=== PATIENT | female | born 1990 | race Asian ===

== ENCOUNTER 2023-12-06 08:33 | Observation (INO) ==
--- NOTE | 2023-12-05 09:26 | Anesthesiology Consultation ---
Date of Service December 05, 2023 Assessment & Plan (1) Encounter for pre-operative examination: - check urine test STAT am DOS. - ER 12/04/23 [facility]: "...skateboarding when she lost control and landed on an inverted left ankle. Immediate pain and deformity to the ankle...denies wearing a helmet. Denies striking her head or loss of consciousness. She is not on any anticoagulation...ankle reduced in ER after several attempts and assisted by Dr. 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 Chart Review Chart Review: Acceptable Risk for Surgery and Patient NOT seen in Pre Admission Testing History Surgery Operation Date: 12/06/23 09:55 Proposed Procedures p Right Ankle Open Reduction and Internal Fixation - Jared Grayson MD Height/Weight Height: 5 ft 4 in Weight: 56 kg Allergies Allergy/AdvReac Type Severity Reaction Status Date / Time No Known Allergies Allergy Verified 12/05/23 09:36 Medications Home Medications Medication Instructions Recorded Confirmed Last Taken ibuprofen 200 mg tablet (Advil) 200 mg PO Q6H PRN pain #30 tabs 05/19/21 12/05/23 Unknown cholecalciferol (vitamin D3) 50 50 mcg PO DAILY 01/05/22 12/05/23 Unknown mcg (2,000 unit) capsule fluticasone propionate 50 1 spray intranasal DAILY 01/05/22 12/05/23 Unknown mcg/actuation nasal spray,suspension (Allergy Relief (fluticasone)) melatonin 1 mg tablet 1 mg PO HS PRN Sleep 01/05/22 12/05/23 Unknown cephalexin 500 mg capsule 500 mg PO QID 7 days #28 caps 12/04/23 12/05/23 Unknown oxycodone 5 mg tablet 5 mg PO Q6H #10 tabs 12/04/23 12/05/23 Unknown Medical Marijuana 1 gummy PO UD PRN anxiety and 12/05/23 12/05/23 Unknown depression glucosam 750 mg-chondroi 100 1 tab PO DAILY 12/05/23 12/05/23 Unknown mg-hyalur 1.65 mg-CF borate 108 mg tablet (ShoorK) levonorgestrel-ethinyl estradiol 1 tab PO HS 12/05/23 12/05/23 Unknown 0.1 mg-20 mcg tablet vitamin B complex 1 cap PO DAILY 12/05/23 12/05/23 Unknown Past Medical History Medical History (Updated 12/05/23 @ 10:17 by Neeta Tran PA-C) Anxiety and depression Past Family History Family History Grandmother (Maternal) Colorectal cancer Diabetes Grandmother (Paternal) Myocardial infarction Other Hypertension Denies family history of Ovarian cancer Prostate cancer Breast cancer Past Surgical History Surgical History (Updated 12/05/23 @ 09:44 by Jayla Seaman) S/P wisdom tooth extraction not under anesthesia Social History Smoking Status: Never smoker Hx Alcohol Use: No Hx Substance Use: No substance use type: marijuana Lab Results Anesthesia Preop Results Results Anesthesia Widget: WBC 5.80 K/ul (4.8-10.8) 12/04/23 Hgb 14.6 g/dl (12.0-16.0) 12/04/23 Hct 42.0 % (37.0-47.0) 12/04/23 Plt 219 K/uL (130-400) 12/04/23 Na 137 mmol/L (136-145) 12/04/23 K 3.6 mmol/L (3.5-5.1) 12/04/23 Cl 103 mmol/L (98-107) 12/04/23 CO2 24 mmol/L (21-32) 12/04/23 BUN 11 mg/dl (6-23) 12/04/23 Creat 1.06 mg/dl (0.6-1.2) 12/04/23 Glucose Level 103 mg/dl (70-99(Fasting)) H 12/04/23
[~2023-12-06 08:33] MED LIST: LIDOCAINE 2% 2 ML VIAL/AMP(20MG/ML) INFIL ONE; MIDAZOLAM HCL 1 MG/ML 2ML VIAL ONE; PROPOFOL IV EMULSION 10 MG/ML 20 ML VIAL IV ONE; ROPIVACAINE 0.5% 5 MG/ML 30 ML VIAL ONE; fentaNYL citrate PF 100 MCG/2 ML VIAL ONE
[2023-12-06] MEDS ORDERED: fentaNYL citrate PF 100 MCG/2 ML VIAL IV PRN (08:48)
[2023-12-06] MEDS ORDERED: ePHEDrine sulfate 50 MG/ML AMP IV PRN (08:48)
[2023-12-06] MEDS ORDERED: HYDROmorphone INJ 1 MG/ML SYRINGE IV PRN (08:48)
[2023-12-06] MEDS ORDERED: PROMETHAZINE HCL 6.25 MG in SODIUM CHLORIDE 0.9% 50 ML IV PRN (08:48)
[2023-12-06] MEDS ORDERED: ATROPINE SULFATE 0.1 MG/ML 10ML SYR IV PRN (08:48)
[2023-12-06] MEDS ORDERED: ONDANSETRON INJ 2 MG/ML 2 ML VIAL IV PRN ×2 (08:48→13:26)
--- NOTE | 2023-12-06 09:16 | History & Physical Bridge Note ---
Date of Service December 06, 2023 History & Physical Bridge Note I have examined the patient, reviewed the History & Physical and in the interval since the performance of the History & Physical I have noted the following changes of clinical significance: no changes noted
[2023-12-06] MEDS: LR 15ML/HR IV SCH (09:25)
[2023-12-06] MEDS: ACETAMINOPHEN 500 MG TAB PO SCH (09:40)
[2023-12-06 10:09] LABS: Pregnancy Test, Serum Negative (Negative)
[2023-12-06] MEDS: ceFAZolin 2000MG 2,000 MG/15 ML SYR IV SCH ×2 (10:24→21:01)
[2023-12-06] MEDS ORDERED: DEXAMETHASONE SOD INJ 4 MG/ML VIAL ONE (11:11)
[2023-12-06] MEDS ORDERED: ePHEDrine sulfate 50 MG/5 ML SYR ONE (11:12)
--- NOTE | 2023-12-06 13:09 | Fluoroscopy Report ---
FL ankle RT 2V CLINICAL HISTORY: R ANKLEright ankle surgery COMPARISON STUDY: Radiographs 12/04/2023 FLUOROSCOPY TIME: 56.9 seconds FLUOROSCOPY IMAGES: 2 EXPOSURE DOSE: 0.6206 mGy FINDINGS: Lateral plate and screw fusion of the lateral malleolus with 2 cannulated screws within the medial malleolus. Syndesmotic repair. There is improved alignment of the acute trimalleolar ankle fr acture. A few surgical sponges are noted which appear to be external to the patient. IMPRESSION: Fluoroscopic assistance as above. ACT 112: Negative or not required by law. Electronically signed by: Maurice Palomo M.D. 12/06/2023 1:08 PM
[2023-12-06] MEDS ORDERED: ONDANSETRON INJ 2 MG/ML 2 ML VIAL ONE (13:14)
[2023-12-06] MEDS ORDERED: SENNA 8.6 MG TAB PO PRN (13:26)
[2023-12-06] MEDS ORDERED: bisacodyL 10 MG SUPP PR PRN (13:26)
[2023-12-06] MEDS ORDERED: METOCLOPRAMIDE HCL INJ 5 MG/ML 2 ML VIAL IV PRN (13:26)
[2023-12-06] MEDS ORDERED: NALOXONE HCL 0.4 MG/1 ML VIAL/CARP IV PRN (13:26)
[2023-12-06] MEDS ORDERED: MAGNESIUM HYDROXIDE SUSP 30 ML UDC PO PRN (13:26)
[2023-12-06] MEDS ORDERED: ACETAMINOPHEN 1,000 MG/100 ML VIAL IV PRN (13:26)
[2023-12-06] MEDS ORDERED: HYDROmorphone INJ 0.5 MG/0.5 ML SYR IV PRN (13:26)
[2023-12-06] MEDS ORDERED: diphenhydrAMINE Capsule 25 MG CAP PO PRN (13:26)
[2023-12-06] MEDS ORDERED: MELATONIN 3 MG TAB PO PRN (13:39)
--- NOTE | 2023-12-06 13:55 | Operative Report ---
PG Post Operative Report Pre & Post Diagnosis Operation Date: 12/06/23 09:55 Pre-Op Diagnosis: Closed Trimalleolar Fracture Dislocation of Right Ankle, Traumatic Medial Malleolar Laceration Post-Op Diagnosis: Open Trimalleolar Fracture Dislocation of Right Ankle, Traumatic Medial Malleolar Laceration I identified the patient and participated in the time-out.: Yes Procedure Operation Date: 12/06/23 09:55 Actual Procedures p Right Ankle Incision and debridement of medial malleolar wound, Open Reduction and Internal Fixation of Trimalleolar fracture (Right) - Jared Grayson MD Surgeon Jared Grayson MD Sinter Feeder Jessika Dukes PA-C Estimated Blood Loss 25 Findings See Below Short oblique metaphyseal distal fibular fracture with minimal comminution, Transverse medial malleolar avulsion with adjacent communicating laceration, posterior malleolar shear fracture, all stabilized with all Synthes implants: Medial malleolus fixed with two 4.0 cannulated partially-threaded screws 50 and 46 mm length. Medial laceration had some full-thickness involvement and fracture hematoma seem to propagate proximal and exit the wound. There was no exposed fracture through the wound. Adjacent traumatic skin lesion The talus had scuffing of the anteromedial dome. Small chondral loose body removed. The posterior malleolus had a standard avulsion at the insertion of the posterior inferior tibiofibular ligament. It seemed to involve approximately 25% of the joint service, so it was reduced and held with the periarticular clamp and fixed with a single Synthes 4 oh cannulated screw from anterior to posterior. The lateral malleolus was a short oblique fracture to the metadiaphyseal junction from the posterior shear dislocation force. He was stabilized with the interfragmentary 3.5 mm lag screw and a 2.7/3.5 distal fibular anatomic 4-hole shaft plate. Locking screws were 2.7 mm (10 X2, 14 X2) and cortical screws were 3.5 mm (12 X3). Specimens none Anesthesia Type General Regional Complications none Disposition Accompanied Patient To Recovery: No Disposition: Recovery Room Indications 33-year-old otherwise healthy and active female sustained a fall and ankle i njury resulting in a posterior fracture dislocation. She was reduced in the ER and provisionally splinted. There is a nearby traumatic laceration that was felt to be uninvolved. She was covered by antibiotics regardless in the ER and discharged on oral regimen. She presented today for surgical stabilization at my recommendation. I reviewed the risk, benefits and alternatives of surgery detail. She was agreeable to proceed as I described. Informed consent was obtained today in the preoperative holding area. Description of Procedure On the day of surgery, the patient was greeted in the preoperative holding area. The informed consent was reviewed and confirmed by myself and the patient. The patient identified the surgical site and was marked by me. The patient was then turned over to anesthesia. Anesthesia performed a regional anesthetic block with excellent effect. Patient was then taken to the operating room and placed upon the OR table. Anesthesia was induced. The airway was secured. A 3 blanket bump was placed under his ipsilateral hip. The bone foam was placed onto the operative extremity and fixed to the table. All bony prominences well- padded. A nonsterile tourniquet placed on the operative thigh. The extremity then prepped and draped in usual sterile fashion for ankle fracture surgery. Surgical timeout was called by the circulating nurse and verified all present. Antibiotics had been infused and equipment was available and functional. Adequate fluoroscopic views were available. Surgery was initiated by exsanguinating the extremity with the Esmarch bandage and inflating the tourniquet to 250 mmHg. Total tourniquet time was 120 minutes. The medial malleolus fracture was approached first. This traumatic lesion was about 15 mm posterior to the palpable fracture. This was outlined. The full- thickness component was excised and the approach was adjusted to include this slightly posteriorly. Soft tissue dissection was carried out using dissection scissors. The fracture was gapped open from proximal to distal to thoroughly irrigate the fracture debris. The joint was inspected. There were no obvious loose fragments. Soft tissue margins were developed sharply on all the cortical keys. A commercial pilot hole was made approximately to place a [id number] clamp which was then used at the distal aspect of the fragment to reduce it under direct visualization. Fluoroscopy was used to ensure adequate joint reduction. 2 malleolar screws were chosen for the fixation. Provisional pins were placed and evaluated under fluoroscopy. The near cortex was drilled using the cannulated bit. Two 4.0 cannulated long threaded malleolar screws were placed a 46 mm length. The site was thoroughly irrigated. We then directed attention to the lateral malleolus. The fracture was localized using fluoroscopy and the joint line was marked on the skin. Longitudinal skin incision along the fibular shaft was made. Subcutaneous dissection was carried out using Bovie electrocautery for hemostasis. Subcutaneous dissection was conducted using Metzenbaum scissors with caution for the nearby superficial peroneal nerve. The nerve was identified in the anterior skin flap and mobilized. Fascia was incision was made posterior to the nerve with a muscle sleeve to protect it. The fibula was easily palpable through the fascia and opened up through the retinacula to reveal the periosteum and hematoma. The hematoma was evacuated using sharp dissection and thorough irrigation. The bone ends were exposed. The cortical keys were exposed using 2 mm dissection along the margins using a knife. Fracture reduction clamps were then used to manipulate the fibula. Direct with reduction was able to be achieved in direct visualization. There appeared to be adequate room for interfragmentary screws. 3.5 lag by technique was placed directed from anterior to posterior and proximal to distal across the short oblique fragment. This achieved good purchase and allowed us to remove the clamps. 1 clamp was then replaced a little while the plate positioning and held the posterior spike reduced. The 4-hole plate was chosen to gain enough fixation proximally. We then moved proximally and placed one 3.5 cortical shaft screw through the plate to secure it proximally. Additional cortical shaft screws were placed for the full length of the plate. Distal fixation was accomplished using locking screws due to the short segment. The plate was served firmly on the bone and 4 locking screws were placed through the anatomic plate. This completed the neutralization plate fixation. The fracture reduction and plate position was then evaluated thoroughly on fluoroscopy in multiple views. A dorsiflexion external rotation force was then placed to evaluate the syndesmosis, which did show some translation. On the lateral view, there was some displacement of the posterior malleolus fragment with posterior directed force on the talus. That reason I opted to fix the posterior malleolus. A small incision was made just lateral to the Achilles in an area guided by fluoroscopy to get the periarticular clamp onto the posterior tibia. This was accomplished and then a small stab wound was made anteriorly over the metaphysis of the tibia. Fluoroscopy was used to guide this periarticular clamp on reducing the fracture. We able to compress the fracture with a clamp. I then used another 4 oh cannulated screw. A K wire was placed in the anterolateral distal tibia and directed posteriorly to capture this fragment. Her length was measured off the K wire and a partially-threaded short segment 4.0 cancellous screw was then placed. This obtained good fixation and capture posteriorly. It seemed to stabilize that fragment which was tested with the posterior shift. We then thoroughly irrigated the surgical sites. We then began closure after thorough irrigation. Hemostasis was adequate. 0 Vicryl suture was used to approximate periosteum and muscle fascia around the plate to cover its entirety . Deep fascial tissue was approximated underneath the dermis to close down the wound using 0 Vicryl suture. 2-0 Vicryl sutures in the dermis and the final skin closure with endy. Medial malleolus wound required some advancement and closure because of the excision of the full-thickness macerated component. 0 and 2-0 Vicryl were used as needed in the deep subcutaneous tissues to approximate the skin edges without tension. There was a large de-epithelialized skin lesion just proximal to and anterior to the medial malleolus incision. This was stable through the closure. I used an Allgower Donati nylon suture technique through the area of compromised skin. The remainder the medial malleolus incision was closed with 2 and 3-0 nylon sutures Wounds were dressed with sterile Xeroform, gauze, ABD and contained by web roll. The limb was placed in a standard posterior Ortho-Glass splint. Patient was turned over anesthesia, extubated in the operating room without complication, and transported to the PACU in stable condition. Disposition: The patient will be nonweightbearing and follow-up in 10 to 14 days for wound check and advancement into a controlled active motion boot. Because of the communicating traumatic laceration, I recommended treatment as a grade 1 open fracture. She was covered in the ER with Unasyn and discharged on Keflex. After the final closure today, I recommended inpatient for parenteral IV antibiotics for 24 hours. Her was agreeable. She will be discharged to outpatient care after the antibiotic. Ankle range of motion can begin once the wound is healed and the sutures removed at the 2-week postop. Routine postoperative pain management was prescribed. I recommended daily aspirin for DVT prophylaxis. Physician mortgage loan assistant attestation: Jessika Dukes PA-C was present and scrubbed for the duration of the case. She was essential to prepping/draping, patient positioning, retraction, and assistance with wound closure. The skilled assistance of the PA was necessary for fracture reduction and assistance with drilling and placement of hardware. I attest to the content of the Intraoperative Record and any orders documented therein. Any exceptions are noted below. I attest to the content of the Intraoperative Record and any orders documented therein. Any exceptions are noted below.
--- NOTE | 2023-12-06 14:15 | Anesthesiology Progress Note ---
Date of Service December 06, 2023 Anesthesia Post Procedure Vital Signs Vital Signs: Temp Pulse Resp BP Pulse Ox O2 Del Method O2 Flow Rate 12/06/23 14:05 79 16 115/68 98 Room Air 12/06/23 13:55 36.8 C 81 16 114/69 98 Room Air 12/06/23 13:45 80 17 118/56 L 100 Oxymask 5 12/06/23 13:35 71 17 117/55 L 100 Oxymask 5 12/06/23 13:25 36.9 C 82 17 118/59 L 100 Oxymask 5 12/06/23 09:15 36.9 C 96 H 20 122/84 97 Room Air Pain Intensity Right Ankle: Pain Intensity: 2 Transfer of Care Handoff Completed per policy Notes Mental Status: alert / awake / arousable and participated in evaluation Nausea / Vomiting: adequately controlled Pain: adequately controlled Airway Patency, RR, SpO2: stable & adequate BP & HR: stable & adequate Hydration State: stable & adequate Anesthetic Complications: no major complications apparent and Pt Satisfied with anesthetic care
[2023-12-06] MEDS: MISSING Provider Signature on ORDER(s) SCH (15:22)
[2023-12-06] MEDS: SODIUM CHLORIDE 0.9% 1,000 ML IV SCH (16:02)
[2023-12-06] MEDS: ORAL CONTRACEPTIVE~ORDER AWAITING ACTION SCH (16:03)
[2023-12-06 17:31] VITALS: O2SAT 98
[2023-12-06] MEDS: DOCUSATE SODIUM 100 MG CAP PO SCH (20:59)
[2023-12-06] MEDS: oxyCODONE HCL IR 5 MG TAB (IMMEDIATE RELEASE) PO PRN (23:36)
[2023-12-07 04:53] VITALS: PULSE 77
[2023-12-07] MEDS ORDERED: ceFAZolin 2000MG 2,000 MG/15 ML SYR IV SCH (06:00)
[2023-12-07] MEDS ORDERED: ACETAMINOPHEN 500 MG TAB PO SCH (06:00)
[2023-12-07] MEDS ORDERED: LR 60ML/HR IV SCH (06:00)
[2023-12-07 07:34] VITALS: BP 104/64; RESP 16; TEMP 98.2
[2023-12-07] MEDS: ASPIRIN 325 MG ECTAB PO SCH (08:56)
[2023-12-07] MEDS: MULTIVITAMIN TAB PO SCH (08:58)
[2023-12-07] MEDS: FLUTICASONE PROPIONATE NA SPR 16 GM BTL SCH (08:58)
[2023-12-07] MEDS: VITAMIN B COMPLEX TAB PO SCH (08:58)
[2023-12-07] MEDS: CHOLECALCIFEROL 25 MCG (1000 UNITS) TAB PO SCH (08:58)
--- NOTE | 2023-12-07 08:59 | Orthopedic Progress Note ---
Date of Service December 07, 2023 Assessment & Plan (1) History of ankle surgery: - She will be stable orthopedically for discharge when she works with PT/OT for ambulation and 24-hour antibiotics are done. She should remain nonweightbearing right lower extremity. We would like to see her back in 2 weeks for her first postop check. Medications will be sent. She should continue her home antibiotics that she got from the emergency department. She should also continue with aspirin 325 mg daily for DVT prophylaxis. (2) Ankle wound: (3) Closed fracture dislocation of ankle joint: Subjective Operation Date: 12/06/23 09:55 Actual Procedures p Right Ankle Incision and debridement of medial malleolar wound, Open Reduction and Internal Fixation of Trimalleolar fracture (Right) - Jared Grayson MD Patient is a 33-year-old female postop day 1 from a right ankle incision and debridement of medial malleolar wound, ORIF of right trimalleolar fracture due to an injury that she sustained this past Sunday evening while skateboarding. At today's check, she states that her pain did start to increase this morning. Does not have any questions today regarding the right ankle, but does state that her right arm did cause her some pain when she woke up from anesthesia last night. She states that it is improving. She is wondering why this happened. She denies any fever, chills or constitutional symptoms. No other question concerns today. Review of Systems All systems reviewed & are unremarkable except as noted in HPI & below. Physical Exam General: Alert and oriented. No acute distress. Resting comfortably in hospital bed. Right lower extremity: Did not take splint off as she is postop day 1. No saturation of the Anthony wrap. She has sensation in her toes and is able to wiggle them. Capillary refill less than 3 seconds all toes. Results & Data Results & Data Laboratory Results . Diagnostic Findings . PG Care Time/CCT Total # of Minutes Spent Total Time Spent with Patient: Total time spent is greater than 50% in coordination of care (as documented) at patient's floor/unit and/or counseling patient: Coding Diagnoses History of ankle surgery Z98.890 Wound of right ankle, initial encounter S91.001A Encounter type: initial encounter Laterality: right Closed fracture dislocation of right ankle, initial encounter S82.891A Encounter type: initial encounter Laterality: right (2) Ankle wound Encounter type: initial encounter Laterality: right Qualified Code(s): S91.001A - Unspecified open wound, right ankle, initial encounter (3) Closed fracture dislocation of ankle joint Encounter type: initial encounter Laterality: right Qualified Code(s): S82.891A - Other fracture of right lower leg, initial encounter for closed fracture
[2023-12-07] MEDS ORDERED: NON-FORMULARY MEDICATION (Glucosam-Chond-Hyalu-Cf Borate [Move Free Joint Health] 750 mg-1 PO SCH (09:00)
--- NOTE | 2023-12-07 09:01 | Discharge Summary ---
Date of Service December 07, 2023 Admission HPI (Per Admitting) 33-year-old otherwise healthy and active female sustained a fall and ankle injury resulting in a posterior fracture dislocation. She was reduced in the ER and provisionally splinted. There is a nearby traumatic laceration that was felt to be uninvolved. She was covered by antibiotics regardless in the ER and discharged on oral regimen. She presented today for surgical stabilization at my recommendation. I reviewed the risk, benefits and alternatives of surgery detail. She was agreeable to proceed as I described. She underwent the procedure above and was admitted to the hospital for 24-hour antibiotics due to the wound communicating with the ankle fracture/joint. Admission Exam (Per Admitting) She was admitted after her surgery. Ankle splint in place. She is alert and oriented. Neuro vastly intact right lower extremity. Constitutional WD/WN, vitals as above Psychiatric A+Ox3, euthymic affect Principal Diagnosis Same as "Discharge Diagnosis" noted below under Discharge Instructions. Discharge Exam General: Alert and oriented. No acute distress. Resting comfortably in hospital bed. Right lower extremity: Did not take splint off as she is postop day 1. No saturation of the Anthony wrap. She has sensation in her toes and is able to wiggle them. Capillary refill less than 3 seconds all toes. Constitutional WD/WN, vitals as above Psychiatric A+Ox3, euthymic affect Discharge Data Procedures Performed Operation Date: 12/06/23 09:55 Actual Procedures p Right Ankle Open Reduction and Internal Fixation(Right) - Jared Grayson MD Ordered Studies 12/06/23 08:48 US - OR guided needle placemen Routine 12/06/23 09:55 FL ankle RT 2V Routine Hospital Course (1) History of ankle surgery: (2) Ankle wound: Encounter type: initial encounter Laterality: right Qualified Code(s): S91.001A - Unspecified open wound, right ankle, initial encounter (3) Closed fracture dislocation of ankle joint: Encounter type: initial encounter Laterality: right Qualified Code(s): S82.891A - Other fracture of right lower leg, initial encounter for closed fracture PG Care Time/CCT Total # of Minutes Spent Total Time Spent with Patient: Total time spent is greater than 50% in coordination of care (as documented) at patient's floor/unit and/or counseling patient: Discharge Plan Discharge Items Patient Disposition: Home - Self-Care Reason For Visit: Closed Fracture Dislocation of Right Ankle, Initia Discharge Diagnosis: same Activity: Per Instructions section Non-emergency contact: Surgeon Call non-emergency contact if: your pain is not controlled, you have a fever and your temperature is above 101.5 Follow-up/Referrals: Allison Corbin MD [Primary Care Provider] - Diet: Regular Addtl Attending Provider Instructions: Jared Grayson M.D. [facility] [address] [facility], [place] [address] POSTOPERATIVE INSTRUCTIONS LOWER EXTREMITY FRACTURE INSTRUCTIONS SPLINT/WOUND CARE: Leave your splint in place and keep the area clean and dry. Your splint will be taken down at your postop clinic visit. Do not remove it yourself. You should be completely non-weightbearing. You can flex and extend and wiggle your toes as much as the splint allows, when tolerable.Toe motion will help with swelling and is encourage. If the splint becomes wet, dirty, uncomfortable, or loose, please call the Orthopedic Clinic ([phone]) to arrange to be evaluated. Please call the Ortho Clinic if you have any questions or concerns. PAIN CONTROL: Elevation is your best friend. Swelling is simply fluid. Elevation will allow the fluid to run down hill, reduce swelling, and decrease pain. Medications: 1. Oxycodone (OxyIR) 1-2 tablet(s) orally every 4 hours for pain as needed. Use with Tylenol. Begin tapering OxyIR as soon as possible: reduce from 2 to 1 pills per dose, then spread out the doses over greater time intervals, then try to use only for therapy or for comfort while sleeping. Continue to use regular Tylenol until pain subsides. 2. OVER THE COUNTER Tylenol (generic = acetaminophen): 975-1000 mg every 8 hours orally. Regular dosing of Tylenol is an important part of your baseline pain control. Do not taper Tylenol until you have successfully tapered off of regular OxyIR. Do not take more than 3000mg of Tylenol per day. 3. Zofran: 1 tablet orally every 6 hours as needed for nausea related to anesthesia, pain, and narcotic medications. 4. Colace (100mg): take 1-2 tabs twice daily to avoid constipation from OxyIR or other narcotics. OVER THE COUNTER 5. Aspirin (325mg): recommend taking this daily to reduce the risk of dangerous blood clots. WHEN TO CALL. If you develop any of the following symptoms, please contact the [facility] at [phone] or the Emergency room (after hours): Temperature greater than 101 taken twice, difficulty breathing, bleeding, fever and chills, increased pain unrelieved by pain meds, uncomfortable cast or splint, or any other concerns. Pending Studies at Discharge: No Stand-Alone Forms: [facility] Medications and DC Order Prescriptions: New ondansetron 4 mg tablet,disintegrating 4 mg PO Q6H PRN (Reason: nausea and vomiting) Qty: 10 0RF oxycodone 5 mg tablet 5 - 10 mg PO Q6H MDD 6 tablets PRN (Reason: post operative pain) Qty: 18 0RF Continued fluticasone propionate [Allergy Relief (fluticasone)] 50 mcg/actuation spray,suspension 1 spray intranasal DAILY Rx Instructions: administer into each nostril cholecalciferol (vitamin D3) 50 mcg (2,000 unit) capsule 50 mcg PO DAILY melatonin 1 mg tablet 1 mg PO HS PRN (Reason: Sleep) ibuprofen [Advil] 200 mg tablet 200 mg PO Q6H PRN (Reason: pain) Qty: 30 0RF cephalexin 500 mg capsule 500 mg PO QID 7 Days Qty: 28 0RF Patient Comments: will be done by 12/06/23 vitamin B complex Capsule 1 cap PO DAILY [facility] 750 mg-100 mg- 1.65 mg-108 mg Tablet 1 tab PO DAILY Medical Marijuana 1 gummy PO UD PRN (Reason: anxiety and depression) Patient Comments: ~2-5x per month levonorgestrel-ethinyl estrad 0.1-20 mg-mcg tablet 1 tab PO HS Discontinued oxycodone 5 mg tablet 5 mg PO Q6H Qty: 10 0RF Discharge Orders: Discharge Order (Routine); Ordered 12/07/23 Ordered By: Jessika Dukes Admission Data Admit Date/Time: 12/06/23 13:26 Attending Provider: Jared Grayson Admit Provider: Jared Grayson Primary Care Provider: Allison Corbin
[2023-12-07] MEDS: ceFAZolin 2000MG 2,000 MG/15 ML SYR IV SCH (11:44)
== END 2023-12-07 13:08 | disposition home or self-care (01) ==
LOC: ASU 08:33 → 3E 08:33